=== PATIENT | female | born 1990 | race African-American/Black ===

== ENCOUNTER 2016-04-26 19:38 | Emergency (ER) | payer OTHER ==
[~2016-04-26] VITALS: Ht 172.7 cm; Wt 59.0 kg
[2016-04-26 20:03] LABS: POTASSIUM ISTAT 3.8 mmol/L (3.5-5.0)
[2016-04-26] MEDS ORDERED: KETOROLAC TROMETHAMINE 30 MG/ML SYRINGE. IV ONE (20:15)
[2016-04-26 20:20] VITALS: BP 119/73
[2016-04-26 20:32] LABS: NEG OBC UR NEG; POS OBC UR POS
--- NOTE | 2016-04-26 20:37 | PHYS DOC ---
Past Medical History Past Medical History: Anxiety, Bronchitis, GERD Additional Past Medical Histor: seizure like activity Past Surgical History: No Surgical History Alcohol Use: None Drug Use: None Adult General Chief Complaint Chief Complaint: CHEST PAIN HPI HPI Patient is a 25 year old female who presents with 3 days of left arm pain and left chest pain today. She states the muscles throughout her left arm have been hurting, aching, tingling. Her symptoms have been gradually worsening. She also notes some achy pains along the left side of her chest today that have been constant. She states she looked up her symptoms and became concerned that she was having a stroke or heart attack so she came for evaluation. She denies cough , dyspnea, leg pain or swelling, hemoptysis, palpitations, diaphoresis nausea or vomiting, fever or chills, diarrhea, dysuria. Review of Systems Review of Systems Constitutional: Denies fever or chills [] Eyes: Denies change in visual acuity, redness, or eye pain [] HENT: Denies nasal congestion or sore throat [] Respiratory: Denies cough or shortness of breath [] Cardiovascular: No additional information not addressed in HPI [] GI: Denies abdominal pain, nausea, vomiting, bloody stools or diarrhea [] : Denies dysuria or hematuria [] Musculoskeletal: Denies back pain [] Integument: Denies rash or skin lesions [] Neurologic: Denies headache, focal weakness or sensory changes [] Endocrine: Denies polyuria or polydipsia [] Current Medications Current Medications Current Medications Medications (Trade) Dose Ordered Sig/[facility] Start Time Stop Time Status Last Admin Dose Admin Ketorolac Tromethamine (Toradol) 10 mg 1X ONCE 04/26/16 20:15 04/26/16 20:16 DC 04/26/16 20:26 10 MG Allergies Allergies Allergies Coded Allergies Type Severity Reaction Last Updated Verified No Known Drug Allergies 08/18/13 No Physical Exam Physical Exam Constitutional: Well developed, well nourished, no acute distress, non-toxic appearance. [] HENT: Normocephalic, atraumatic, bilateral external ears normal, oropharynx moist, no oral exudates, nose normal. [] Eyes: PERRLA, EOMI, conjunctiva normal, no discharge. [] Neck: Normal range of motion, no tenderness, supple. [] Cardiovascular:Heart rate regular rhythm [] Lungs & Thorax: Bilateral breath sounds clear to auscultation. Has tenderness along left chest wall consistent with complaint [] Abdomen: Bowel sounds normal, soft, no tenderness. [] Skin: Warm, dry, no erythema, no rash. [] Back: No tenderness, no CVA tenderness. [] Extremities: No bony tenderness, has some muscular tenderness about left upper extremity, ROM intact, no edema, equal radial pulses. [] Neurologic: Alert and oriented X 3, normal motor function, normal sensory function, no focal deficits noted. [] Psychologic: Affect normal, judgement normal, mood normal. [] Current Patient Data Vital Signs Vital Signs Date Time Temp Pulse Resp B/P Pulse Ox O2 Delivery O2 Flow Rate FiO2 04/26/16 19:40 98.4 79 16 121/83 100 Room Air 98.4 Lab Values Laboratory Tests Test 04/26/16 19:56 04/26/16 20:00 04/26/16 20:18 POC Troponin I 0.00ng/ml (<0.08) POC Hemoglobin 13.6g/dL (12-15) POC Hematocrit 40% (36-40) POC Sodium 145mmol/L (135-145) POC Potassium 3.8mmol/L (3.5-5.0) POC Chloride 107mmol/L (98-110) POC Total CO2 24mmol/L (23-32) Anion Gap 19mmol/L (6-14) H POC Blood Urea Nitrogen 13mg/dL (8-26) POC Creatinine 0.8mg/dL (0.5-1.4) Glucose Level 74mg/dL (70-99) POC Ionized Calcium (Maegan) 1.16mmol/L (1.13-1.32) Urine Test Negative (NEG) Laboratory Tests 04/26/16 20:00 EKG EKG EKG as interpreted by me as normal sinus rhythm, rate 83, no ST-T changes, normal intervals, no ectopy Course & Med Decision Making Course & Med Decision Making Pertinent Labs and Imaging studies reviewed. (See chart for details) Workup is unremarkable. Discussed supportive care. Discussed smoking cessation. Return precautions given. She understands and agrees with plan. Dragon Disclaimer Dragon Disclaimer This electronic medical record was generated, in whole or in part, using a voice recognition dictation system. Departure Departure Impression: Primary Impression: Chest pain Additional Impression: Left arm pain Disposition: 01 HOME, SELF-CARE Condition: STABLE Referrals: FRANCISCO J MAYO MD (PCP) Patient Instructions: Musculoskeletal Pain Additional Instructions: Take Tylenol or ibuprofen as needed for pain. Follow-up with your primary care doctor. Return for any concerns. Problem Qualifiers Primary Impression: Chest pain Chest pain type: other chest pain Qualified Code: R07.89 - Other chest pain Alma Delia CALLAHAN MD Apr 26, 2016 20:37
--- NOTE | 2016-04-27 06:38 | EKG ---
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
== END 2016-04-26 20:45 | disposition home or self-care (01) ==
LOC: ER 19:38
DX: M79.602 Pain in left arm (principal); R07.9 Chest pain, unspecified; F41.9 Anxiety disorder, unspecified; K21.9 Gastro-esophageal reflux disease without esophagitis; F17.200 Nicotine dependence, unspecified, uncomplicated
CPT/HCPCS: 80047; 81025; 84484; 93005; 96374; 99284; J1885

== ENCOUNTER 2016-09-24 17:20 | Emergency (ER) | payer SELFPAY ==
[~2016-09-24] VITALS: Ht 172.7 cm; Wt 63.5 kg
[2016-09-24 17:38] LABS: BILIRUBIN,URINE NEGATIVE (NEG); GLUCOSE,URINE NEGATIVE (NEG); NITRITE,URINE NEGATIVE (NEG); PROTEIN,URINE NEGATIVE (NEG-TRACE); UROBILINOGEN,URINE 0.2 mg/dL (0.2 mg/dL)
[2016-09-24 17:52] LABS: BACTERIA,URINE FEW /HPF (0-FEW); RBC,URINE 0 /HPF (0-2); SQUAMOUS EPITHELIAL CELL,UR OCC /LPF; TRICHOMONAS,URINE PRESENT
[2016-09-24 18:00] LABS: POTASSIUM ISTAT 3.5 mmol/L (3.5-5.0)
[2016-09-24] MEDS ORDERED: DOXY100C2 PO (18:13)
[2016-09-24] MEDS ORDERED: PROM12.56 PO (18:13)
--- NOTE | 2016-09-24 18:13 | PHYS DOC ---
Past Medical History Past Medical History: Anxiety, Bronchitis, GERD, STD Additional Past Medical Histor: seizure like activity Past Surgical History: No Surgical History Additional Information: 4-5 cigarettes daily Alcohol Use: Occasionally Drug Use: None Adult General Chief Complaint Chief Complaint: PELVIC PAIN HPI HPI Patient is a 25 year old female who presents with 1 week of intermittent crampy lower abdominal pain bilaterally, worse after eating, sometimes associated with nausea. She does admit to some clear vaginal discharge recently , but states this occurs monthly and she had a recent normal well woman exam. No fever or chills, current nausea, emesis, diarrhea, constipation, bloody or dark stools, dysuria, hematuria. Last menstrual cycle was at the beginning of this month. Review of Systems Review of Systems Constitutional: Denies fever or chills [] Eyes: Denies change in visual acuity, redness, or eye pain [] HENT: Denies nasal congestion or sore throat [] Respiratory: Denies cough or shortness of breath [] Cardiovascular: No additional information not addressed in HPI [] GI: Denies vomiting, bloody stools or diarrhea [] : Denies dysuria or hematuria [] Musculoskeletal: Denies back pain or joint pain [] Integument: Denies rash or skin lesions [] Neurologic: Denies headache, focal weakness or sensory changes [] Endocrine: Denies polyuria or polydipsia [] Current Medications Current Medications Current Medications Medications (Trade) Dose Ordered Sig/Sheryl Start Time Stop Time Status Last Admin Dose Admin Ceftriaxone Sodium (Rocephin Im) 250 mg 1X ONCE 09/24/16 18:15 09/24/16 18:16 Doxycycline Hyclate (Vibra-Tab) 100 mg 1X ONCE 09/24/16 18:15 09/24/16 18:16 Metronidazole (Flagyl) 2,000 mg 1X ONCE 09/24/16 18:15 09/24/16 18:16 Ondansetron HCl (Zofran Odt) 4 mg 1X ONCE 09/24/16 18:15 09/24/16 18:16 Allergies Allergies Allergies Coded Allergies Type Severity Reaction Last Updated Verified No Known Drug Allergies 08/18/13 No Physical Exam Physical Exam Constitutional: Well developed, well nourished, no acute distress, non-toxic appearance. [] HENT: Normocephalic, atraumatic, bilateral external ears normal, oropharynx moist, nose normal. [] Eyes: PERRLA, EOMI. [] Neck: Normal range of motion, supple. [] Cardiovascular:Heart rate regular rhythm [] Lungs & Thorax: Bilateral breath sounds clear to auscultation [] Abdomen: Bowel sounds normal, soft, no tenderness. [] Skin: Warm, dry, no erythema, no rash. [] Back: No tenderness, no CVA tenderness. [] Extremities: No tenderness, ROM intact, no edema. [] Neurologic: Alert and oriented X 3, normal motor function, normal sensory function, no focal deficits noted. [] Psychologic: Affect normal, judgement normal, mood normal. [] Current Patient Data Vital Signs Vital Signs Date Time Temp Pulse Resp B/P (MAP) Pulse Ox O2 Delivery O2 Flow Rate FiO2 09/24/16 17:30 99.2 91 16 122/65 (84) 100 Room Air 99.2 Lab Values Laboratory Tests Test 09/24/16 16:38 09/24/16 17:30 09/24/16 17:57 POC Urine HCG, Qualitative Hcg negative (Negative) Urine Color Yellow Urine Clarity Clear Urine pH 6.0 Urine Specific [place] 1.015 Urine Protein Negative mg/dL (NEG-TRACE) Urine Glucose (UA) Negative mg/dL (NEG) Urine Ketones (Stick) Negative mg/dL (NEG) Urine Blood Negative (NEG) Urine Nitrite Negative (NEG) Urine Bilirubin Negative (NEG) Urine Urobilinogen Dipstick 0.2 mg/dL (0.2 mg/dL) Urine Leukocyte Esterase Large (NEG) Urine RBC 0 /HPF (0-2) Urine WBC 11-20 /HPF (0-4) Urine Squamous Epithelial Cells Occ /LPF Urine Bacteria Few /HPF (0-FEW) Urine Mucus Mod /LPF Urine Trichomonas Present POC Hemoglobin 13.3 g/dL (12-15) POC Hematocrit 39 % (36-40) POC Sodium 137 mmol/L (135-145) POC Potassium 3.5 mmol/L (3.5-5.0) POC Chloride 107 mmol/L (98-110) POC Total CO2 20 mmol/L (23-32) L Anion Gap 15 mmol/L (6-14) H POC Blood Urea Nitrogen 9 mg/dL (8-26) POC Creatinine 0.7 mg/dL (0.5-1.4) Glucose Level 70 mg/dL (70-99) POC Ionized Calcium (Maegan) 1.15 mmol/L (1.13-1.32) Laboratory Tests 09/24/16 17:57 Course & Med Decision Making Course & Med Decision Making Pertinent Labs and Imaging studies reviewed. (See chart for details) Urinalysis shows Trichomonas, but is otherwise is unremarkable. Discussed need for treatment for likely PID given her symptoms. Discussed to notify her partners. Discussed safe sex practices. Return precautions given. She understands and agrees plan. Dragon Disclaimer Dragon Disclaimer This electronic medical record was generated, in whole or in part, using a voice recognition dictation system. Departure Departure Impression: Primary Impression: PID (acute pelvic inflammatory disease) Disposition: HOME, SELF-CARE Condition: STABLE Referrals: FRANCISCO J MAYO MD (PCP) Patient Instructions: Pelvic Inflammatory Disease, [id number] Additional Instructions: Take doxycycline as prescribed. Take promethazine as needed for nausea. Take Tylenol or ibuprofen as a for pain. You will be called only if gonorrhea and chlamydia testing is positive. 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 Return for any concerns. Scripts Promethazine Hcl (PROMETHAZINE HCL) 12.5 Mg Tablet 1 TAB PO Q6-8HRS Y for NAUSEA, #10 TAB 0 Refills Prov: Alma Delia CALLAHAN MD 09/24/16 Doxycycline Hyclate (DOXYCYCLINE HYCLATE) 100 Mg Capsule 1 CAP PO BID, #28 CAP Prov: Alma Delia CALLAHAN MD 09/24/16 Alma Delia CALLAHAN MD Sep 24, 2016 18:13
[2016-09-24] MEDS ORDERED: metroNIDAZOLE 500 MG TABLET PO ONE (18:15)
[2016-09-24] MEDS ORDERED: DOXYCYCLINE HYCLATE 100 MG TABLET PO ONE (18:15)
[2016-09-24] MEDS ORDERED: cefTRIAXone IM 250 MG VIAL IM ONE (18:15)
[2016-09-24] MEDS ORDERED: ONDANSETRON ODT 4 MG TAB.RAPDIS. PO ONE (18:15)
[2016-09-24 18:38] VITALS: BP 104/68
== END 2016-09-24 19:10 | disposition home or self-care (01) ==
LOC: ER 17:20
DX: N73.9 Female pelvic inflammatory disease, unspecified (principal); F41.9 Anxiety disorder, unspecified; K21.9 Gastro-esophageal reflux disease without esophagitis; F17.210 Nicotine dependence, cigarettes, uncomplicated
CPT/HCPCS: 80047; 81001; 81025; 87086; 87491; 87591; 96372; 99284; J0696; Q0162

== ENCOUNTER 2016-10-24 13:41 | Emergency (ER) | payer SELFPAY ==
[~2016-10-24] VITALS: Ht 172.7 cm; Wt 63.5 kg
[~2016-10-24 13:41] MED LIST: DOXY100C2 PO; PROM12.56 PO
[2016-10-24 14:29] VITALS: BP 112/65
[2016-10-24] MEDS ORDERED: PROAIR HFA8.5 GM INH (14:42)
[2016-10-24] MEDS ORDERED: PRED20TA PO (14:42)
[2016-10-24] MEDS ORDERED: AZIT250T PO (14:42)
--- NOTE | 2016-10-24 14:42 | PHYS DOC ---
Past Medical History Past Medical History: Anxiety, Bronchitis, GERD, STD Additional Past Medical Histor: seizure like activity Past Surgical History: No Surgical History Alcohol Use: Occasionally Drug Use: None Adult General Chief Complaint Chief Complaint: COUGH HPI HPI Patient is a 25 year old female presents to the emergency department with a 5 day history of cough and SOA. Patient states "I have bronchitis." Patient states that she smokes. Clear productive cough. Denies fever, chills, nausea or vomiting. Review of Systems Review of Systems Constitutional: Denies fever or chills [] Eyes: Denies change in visual acuity, redness, or eye pain [] HENT: Denies nasal congestion or sore throat [] Respiratory: cough and shortness of breath [] Cardiovascular: No additional information not addressed in HPI [] GI: Denies abdominal pain, nausea, vomiting, bloody stools or diarrhea [] : Denies dysuria or hematuria [] Musculoskeletal: Denies back pain or joint pain [] Integument: Denies rash or skin lesions [] Neurologic: Denies headache, focal weakness or sensory changes [] Endocrine: Denies polyuria or polydipsia [] Current Medications Current Medications Current Medications Medications (Trade) Dose Ordered Sig/Sheryl Start Time Stop Time Status Last Admin Dose Admin Albuterol/ Ipratropium (Duoneb) 3 ml 1X ONCE 10/24/16 14:45 10/24/16 14:46 DC 10/24/16 14:52 3 ML Prednisone (Prednisone) 40 mg 1X ONCE 10/24/16 14:45 10/24/16 14:46 DC 10/24/16 14:40 40 MG Allergies Allergies Allergies Coded Allergies Type Severity Reaction Last Updated Verified No Known Drug Allergies 08/18/13 No Physical Exam Physical Exam Constitutional: Well developed, well nourished, no acute distress, non-toxic appearance. [] HENT: Normocephalic, atraumatic, bilateral external ears normal, oropharynx moist, no oral exudates, nose normal. [] Eyes: PERRLA, EOMI, conjunctiva normal, no discharge. [] Neck: Normal range of motion, no tenderness, supple, no stridor. [] Cardiovascular:Heart rate regular rhythm, no murmur [] Lungs & Thorax: Bilateral breath sounds wheezes noted bilaterally Skin: Warm, dry, no erythema, no rash. [] Back: No tenderness Extremities: No tenderness, no cyanosis, no clubbing, ROM intact, no edema. [] Neurologic: Alert and oriented X 3, normal motor function, normal sensory function, no focal deficits noted. [] Psychologic: Affect normal, judgement normal, mood normal. [] Current Patient Data Vital Signs Vital Signs Date Time Temp Pulse Resp B/P (MAP) Pulse Ox O2 Delivery O2 Flow Rate FiO2 10/24/16 14:53 Room Air 10/24/16 14:29 98.8 95 20 100 98.8 Lab Values Laboratory Tests Test 10/24/16 13:37 POC Urine HCG, Qualitative Hcg negative (Negative) EKG EKG [] Radiology/Procedures Radiology/Procedures [][facility] [address] [place] [address] IMAGING REPORT Signed PATIENT: CASSY THOMAS ACCOUNT: [id number] : 1990 LOCATION: ER AGE: 25 SEX: F EXAM STATUS: REG ER ORD. PHYSICIAN: TITO RIVERA APRN REASON: SOA, cough PROCEDURE: CHEST PA & LATERAL Indication coughing. Shortness of breath. Aeration of symptoms 3 days. PA and lateral views of the chest were obtained and are compared to an examination 05/22/2007. The heart and pulmonary vessels appear normal. The lungs are clear. There is no pleural fluid or pneumothorax. There is not been a significant change when compared to the previous exam. IMPRESSION: No acute or focal process. No significant change DICTATED and SIGNED BY: ROYAL IRVING MD DATE: 10/24/16 1509 CC: TITO RIVERA APRN; NON,STAFF; FRANCISCO J MAYO MD ~ Course & Med Decision Making Course & Med Decision Making Pertinent Labs and Imaging studies reviewed. (See chart for details) Patient was provided with RT treatment here in the emergency department with prednisone. CXR negative for pneumonia. Patient will be provided with zithromax , prednisone, and albuterol with instructions to stop smoking. Patient agrees with discharge instructions treatment regimen and followup recommendations. Patient was provided with signs and symptoms to return to the emergency department. [] Dragon Disclaimer Dragon Disclaimer This electronic medical record was generated, in whole or in part, using a voice recognition dictation system. Departure Departure Impression: Primary Impression: Bronchitis Disposition: 01 HOME, SELF-CARE Condition: STABLE Referrals: FRANCISCO J MAYO MD (PCP) Patient Instructions: Acute Bronchitis, [id number], Smoking Cessation, Tips For Success, Smoking, You Can Quit, [id number] Additional Instructions: Activity as tolerated Medication as prescribed Tylenol or Ibuprofen for fever, chills or generalized body aches Stop smoking Drink plenty of fluids Followup with primary care provider in 3-5 days Return to emergency department as needed for signs and symptoms that become worse. Scripts Azithromycin (ZITHROMAX) 250 Mg Tablet 250 MG PO DAILY for ANTI-BIOTIC, #6 TAB 0 Refills Take 2 tablets today then 1 tablet daily until gone Prov: TITO RIVERA APRN 10/24/16 Albuterol Sulfate (PROAIR HFA INHALER) 8.5 Gm Hfa.aer.ad 1 PUFF INH PRN Q6HRS Y for SHORTNESS OF BREATH, #1 INHALER 0 Refills Prov: TITO RIVERA APRN 10/24/16 Prednisone (PREDNISONE) 20 Mg Tablet 40 MG PO DAILY, #14 TAB Prov: TITO RIVERA APRN 10/24/16 TITO RIVERA APRN Oct 24, 2016 14:42
[2016-10-24] MEDS ORDERED: predniSONE 20 MG TABLET PO ONE (14:45)
[2016-10-24] MEDS ORDERED: IPRATRPIUM/ALBUTEROL 0.5/2.5MG 3 ML NEBU. NEB ONE (14:45)
--- NOTE | 2016-10-24 15:13 | RAD ---
Indication coughing. Shortness of breath. Aeration of symptoms 3 days. PA and lateral views of the chest were obtained and are compared to an examination 05/22/2007. The heart and pulmonary vessels appear normal. The lungs are clear. There is no pleural fluid or pneumothorax. There is not been a significant change when compared to the previous exam. IMPRESSION: No acute or focal process. No significant change
== END 2016-10-24 15:20 | disposition home or self-care (01) ==
LOC: ER 13:41
DX: J40 Bronchitis, not specified as acute or chronic (principal); K21.9 Gastro-esophageal reflux disease without esophagitis; F41.9 Anxiety disorder, unspecified
CPT/HCPCS: 71020; 81025; 94250; 94640; 99284; J7512; J7620

== ENCOUNTER → 2017-03-21 | Outpatient (CLI) | payer OTHER ==
[~2017-03-21] MED LIST changes: +AZIT250T PO; +PRED20TA PO; +PROAIR HFA8.5 GM INH
--- NOTE | 2017-03-21 15:10 | RAD ---
Bilateral breast ultrasound, 03/21/2017: History: Breast lumps The areas of reported clinical concern at the 11:00 location in the right breast and at the 2:00 location in left breast were carefully scanned. The fibroglandular pattern in both is heterogeneous. No cystic or solid breast mass is identified. IMPRESSION: The targeted ultrasound exam of both breasts reveals no abnormality. Clinical surveillance is suggested. If clinical concern persists, bilateral mammography is suggested for further evaluation.
== END | disposition home or self-care (01) ==
LOC: US 14:22
PROVIDERS: ATTEND Obstetrics & Gynecology
DX: N63.10 Unspecified lump in the right breast, unspecified quadrant (principal); N63.20 Unspecified lump in the left breast, unspecified quadrant
CPT/HCPCS: 76641

== ENCOUNTER 2017-03-25 18:12 | Emergency (ER) | payer OTHER ==
[~2017-03-25] VITALS: Ht 172.7 cm; Wt 56.7 kg
[2017-03-25 18:46] VITALS: BP 107/74
--- NOTE | 2017-03-26 07:36 | RAD ---
Hand x-rays Indication: Pain Technique: 3 views of the right hand Comparison: None Findings: No acute fracture-dislocation. No arthritic process. No soft tissue abnormality. Impression: No acute findings.
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
== END 2017-03-25 19:47 | disposition home or self-care (01) ==
LOC: ER 18:12
DX: M79.641 Pain in right hand (principal); K21.9 Gastro-esophageal reflux disease without esophagitis
CPT/HCPCS: 73130; 99284

== ENCOUNTER 2017-08-12 14:09 | Emergency (ER) | payer OTHER ==
[2017-08-12] MEDS: IV NORMAL SALINE 1000ML BAG 1,000 ML IV (14:45)
[2017-08-12 14:47] LABS: ADD MAN DIFF? NO
[2017-08-12 14:55] LABS: BASO # 0.1 x10^3/uL (0.0-0.2); BASO % 1 % (0-3); EOS % 0 % (0-3); HEMATOCRIT 34.6 % (36.0-47.0); HEMOGLOBIN 11.6 g/dL (12.0-15.5); LYMPH # 2.1 x10^3/uL (1.0-4.8); LYMPH % 24 % (24-48); MEAN CORPUSCULAR HEMOGLOBIN 30 pg (25-35); MEAN CORPUSCULAR HGB CONC 34 g/dL (31-37); MEAN CORPUSCULAR VOLUME 89 fL (79-100); MONO # 0.4 x10^3/uL (0.0-1.1); MONO % 4 % (0-9); NEUT # 6.2 x10^3uL (1.8-7.7); NEUT % 71 % (31-73); PLATELET COUNT 226 x10^3/uL (140-400); RED BLOOD COUNT 3.88 x10^6/uL (3.50-5.40); RED CELL DISTRIBUTION WIDTH 13.7 % (11.5-14.5); WHITE BLOOD COUNT 8.7 x10^3/uL (4.0-11.0)
[2017-08-12 15:02] LABS: ANION GAP -27 (6-14); BLOOD UREA NITROGEN 26 mg/dL (7-20); BUN/CREATININE RATIO 33 (6-20); CALCIUM 8.7 mg/dL (8.5-10.1); CARBON DIOXIDE 25 mmol/L (21-32); CHLORIDE 125 mmol/L (98-107); CREATININE 0.8 mg/dL (0.6-1.0); GFR 103.3; GLUCOSE 114 mg/dL (70-99); POTASSIUM 3.4 mmol/L (3.5-5.1); SODIUM 123 mmol/L (136-145)
[2017-08-12 15:05] LABS: ALBUMIN/GLOBULIN RATIO 0.7 (1.0-1.7); ALK PHOS 48 U/L (46-116); ALT (SGPT) 38 U/L (14-59); AST (SGOT) 34 U/L (15-37); MAGNESIUM 1.6 mg/dL (1.8-2.4); TOTAL BILIRUBIN 0.3 mg/dL (0.2-1.0); TOTAL PROTEIN 7.6 g/dL (6.4-8.2)
[2017-08-12 15:13] LABS: THYROID STIM HORMONE (TSH) 1.256 uIU/mL (0.358-3.74)
[2017-08-12 15:13] LABS: FREE T4 1.03 ng/dL (0.76-1.46)
[2017-08-12 15:21] LABS: NEG OBC SER NEG; POS OBC SER POS; PREG TEST PT QUAL NEGATIVE (NEG)
[2017-08-12 15:51] LABS: AGAP ISTAT 14 mmol/L (6-14); BUN ISTAT 24 mg/dL (8-26); CHLORIDE ISTAT 109 mmol/L (98-110); CREATININE ISTAT 0.8 mg/dL (0.5-1.4); GLUCOSE ISTAT 104 mg/dL (70-99); HEMATOCRIT ISTAT 31 % (36-40); HEMOGLOBIN ISTAT 10.5 g/dL (12-15); ION CA ISTAT 1.13 mmol/L (1.13-1.32); POTASSIUM ISTAT 4.1 mmol/L (3.5-5.0); SODIUM ISTAT 142 mmol/L (135-145); TOT CO2 ISTAT 24 mmol/L (23-32)
== END 2017-08-12 16:12 | disposition home or self-care (01) ==
LOC: ER 14:09
DX: R00.2 Palpitations (principal); M32.9 Systemic lupus erythematosus, unspecified; K21.9 Gastro-esophageal reflux disease without esophagitis
CPT/HCPCS: 36415; 80047; 80053; 83735; 84439; 84443; 84703; 85025; 93005; 99285-25; J7030